=== PATIENT | male | born 1960 | race Caucasian/White ===

== ENCOUNTER 2025-03-17 09:34 | Outpatient (CLI) | payer MEDICARE, SELFPAY ==
--- OUTSIDE RECORDS SUMMARY | 2025-03-17 09:54 | XMS_ITS | Referral Summary ---
Author Organization [place] [id number] [facility] Address [address] [place] [address] Care Team Providers Care Betting Clerk Name Role Phone Raul Montiel MD Primary Care Provider [phone] Ian Love MD Unavailable [phone] Allergies No known active allergies Medications albuterol HFA (PROVENTIL HFA,VENTOLIN HFA,PROAIR HFA) 90 mcg/actuation inhaler Inhale 2 puffs every 4 (four) hours as needed for shortness of breath 3 Active ALPRAZolam (XANAX) 1 mg tablet Take 1 tablet (1 mg total) by mouth 4 (four) times a day as needed for anxiety 3 Active amitriptyline (ELAVIL) 150 mg tablet Take 1 tablet (150 mg total) by mouth nightly at bedtime. 3 Active atorvastatin (LIPITOR) 20 mg tablet Take 1 tablet (20 mg total) by mouth nightly 3 Active losartan (COZAAR) 100 mg tablet Take 1 tablet (100 mg total) by mouth every morning 3 Active montelukast (SINGULAIR) 10 mg tablet Take 1 tablet (10 mg total) by mouth every morning 3 Active zolpidem CR (AMBIEN CR) 12.5 mg CR tablet Take 1 tablet (12.5 mg total) by mouth nightly at bedtime. 3 Active venlafaxine XR (EFFEXOR-XR) 75 mg 24 hr capsule Take 1 capsule (75 mg total) by mouth 2 (two) times a day 3 Active tadalafiL (CIALIS) 20 mg tablet Take 1 tablet (20 mg total) by mouth every morning [address] (PROTONIX) 40 mg EC tablet Take 1 tablet (40 mg total) by mouth 2 (two) times a day 3 Active testosterone cypionate (DEPO-TESTOTERO NE) 200 mg/mL injection Inject 3 mL (600 mg total) into the muscle as instructed every 14 (fourteen) days 3 Active polyethylene glycol (MIRALAX) 17 gram packet Take 1 packet (17 g total) by mouth every morning Active busPIRone (BUSPAR) 15 mg tablet Take 1 tablet (15 mg total) by mouth nightly 4 Active risperiDONE (RisperDAL) 0.5 mg tablet Take 1 tablet (0.5 mg total) by mouth nightly Active prazosin (MINIPRESS) 5 mg capsule Take 2 capsules (10 mg total) by mouth nightly Active loratadine (CLARITIN) 10 mg tablet Take 1 tablet (10 mg total) by mouth as needed for allergies Active ipratropium-alb uteroL (DUO-NEB) 0.5-2.5 mg/3 mL nebulizer solution USE 1 AMPULE IN NEBULIZER 4 TIMES DAILY NEEDED Active hydroCHLOROthia zide (HYDRODIURIL) 25 mg tablet Take 1 tablet (25 mg total) by mouth nightly Active fluticasone propionate (FLONASE) 50 mcg/actuation nasal spray Administer 1 spray into affected nostril(s) as needed for allergies or rhinitis Active fexofenadine (ALMA DELIA) 180 mg tablet Take 1 tablet (180 mg total) by mouth as needed Active budesonide (PULMICORT) 180 mcg/actuation inhaler Inhale 2 puffs as needed Active ARIPiprazole (ABILIFY) 5 mg tablet Take 1 tablet (5 mg total) by mouth 2 (two) times a day 4 Active aspirin 81 mg enteric coated tablet Take 2 tablets (162 mg total) by mouth every morning Active ubidecarenone (COENZYME Q10 ORAL) Take by mouth every morning Active acetaminophen (TYLENOL) 500 mg tablet Take 2 tablets (1,000 mg total) by mouth every 6 (six) hours as needed for pain 30 tablet 4 Active acetaminophen 500 mg capsuleIndicati ons:Pain Take 2 capsules (1,000 mg total) by mouth every 6 (six) hours 60 tablet 4 Active senna-docusate (PERICOLACE) 8.6-50 mgIndications:c onstipation Take 2 tablets by mouth 2 (two) times a day 20 tablet 4 Active lidocaine (ASPERCREME) 4 % adhesive patch,medicated Place 2 patches on the skin daily 10 patch 4 Active oxyCODONE (ROXICODONE) 10 mg tabletIndicatio ns:Pain Take 1 tablet (10 mg total) by mouth every 4 (four) hours as needed for pain 10 tablet 4 Active Active Problems Problem Noted Date Diagnosed Date Acute post-operative pain 01/22/2024 Assessment & Plan (01/24/2024 8:49 AM CDT): Patient with history of chronic pain and home medication regimen Patient receiving Tylenol, oxycodone, ice to groin and Toradol x1 01/22 patient uses Tramadol and [place] at home, dose of Oxycodone 5mg not helping with pain. Oxycodone increased to 10mg Q4PRN, and toraldol given x2 as patient is to drive home this afternoon 01/23 pain controlled with PO meds; narcotic instruction/safety sheet provided at [facility] Anxiety 01/22/2024 Assessment & Plan (01/22/2024 12:18 PM CDT): Continue home xanax PRN Depression 01/22/2024 Assessment & Plan (01/22/2024 12:18 PM CDT): Home regimen continued Abilify, amitriptyline, buspar, risparadone, GERD (gastroesophageal reflux disease) Assessment & Plan (01/22/2024 12:19 PM CDT): Continue home PPI Groin pain, chronic, left 01/21/2024 Assessment & Plan (01/22/2024 12:10 PM CDT): See inguinal hernia Chronic pain of inguinal region 01/09/2024 Inguinal hernia without obstruction or gangrene 01/09/2024 Assessment & Plan (01/24/2024 8:51 AM CDT): -01/21 Post op day 1 from left inguinal hernia repair with mesh, pain not controlled, voiding and not passing flatus. Tolerating diet. Pain management- applied ice QID, Tylenol, oxycodone, Toradol x1, encouraged ambulation and out of bed Plan for discharge home tomorrow morning, patient drove self to hospital and will need to be narcotic free for at minimum 4 hours prior to leaving hospital -01/22 dispo held per patient; PO oxycodone administered, patient driving self home. Continued to recommend scrotal support and ice for post-op ecchymosis and edema -01/23 plan for dispo today; POD3, pain controlled, tolerating diet, ambulatory. Dermabond over L groin incision, closed and intact. Plan for phone call follow up with Mj IBRAHIM - patient agreeable and understands After Care Discharge Instructions - Acute Care Emergency Surgery - narcotic and pain control teaching performed by this author, patient reiterated understanding - wound care teaching performed by this author, patient reiterated understanding --- plan discussed with operating surgeon on day of discharge --- patient agreeable to presenting to ED for fever, surgical site or drain changes, malaise or PO intolerance - patient to discharge home with family support ---Home Health Nursing: not ordered/not indicated ---Home Health Therapy (PT/OT): not ordered/not indicated Left inguinal pain 09/10/2023 Social History Tobacco Use Types Packs/Day Years Used Date Smoking Tobacco: Never Smokeless Tobacco: Never Tobacco Cessation:Counseling Given: No Hunger Vital Sign Answer Date Recorded Within the past 12 months, y ou worried that your food would run out before you got the money to buy more. Never true 03/17/20 24 Within the past 12 months, t he food you bought just didn't last and you didn't have money to get more. Never true 03/17/2024 Personal Safety Answer Date Recorded Have you ever been in or are you currently in a harmful physical or emotional relationship or is someone making you feel afraid or unsafe? 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 Gender Identity Not on file Sexual Orientation Not on file Last Filed Vital Signs Vital Sign Reading Time Taken Comments Blood Pressure 125/63 04/04/2024 8:46 AM CDT Pulse 88 04/04/2024 8:46 AM CDT Temperature 36.6 C (97.8 F) 04/04/2024 8:46 AM CDT Respiratory Rate 18 04/04/2024 8:46 AM CDT Oxygen Saturation 96% 04/04/2024 8:46 AM CDT Inhaled Oxygen Concentration - - Weight 86.8 kg (191 lb 6.4 oz) 04/04/2024 8:46 A M CDT Height 185.4 cm (6' 1) 04/04/2024 8:46 AM CDT Body Mass Index 25.25 04/04/2024 8:46 AM CDT Plan of Treatment Not on file Medical Devices Implanted Type Area Head Doffer Device Identifier Shelf Expiration Date Model / Serial / Lot [employer] Inc/C R Bard 6x3in Large Pore Knit Monofilament Smooth [place] [id number] - [id number] Implanted:Qty: 1 on 01/21/2024 by Zay Chavarria MD at [facility] Mesh Abdomen [employer]/C R Bard [id number] 04/11/2028 [id number] / / [id number] Insurance MEDICARE [facility] Address: [address] [address] [place] [address] MEDICARE Advance Directives For more information, please contact: [phone] * Full Code (Latest Code Status on File) Date Activated Date Inactivated Comments 01/21/2024 3:15 PM 01/24/2024 2:26 PM Care Teams Betting Clerk Relationship Specialty Start Date End Date Raul Montiel MD [address] [facility] [place] [address] PCP - General Family Medicine 04/06/23 Ian Love MD [address] [facility]3] DEPT OF SURGERY, [address]RD [place] [address] Referring Physician Surgical Oncology 07/13/23
--- OUTSIDE RECORDS SUMMARY | 2025-03-17 09:54 | XMS_ITS | Clinical Summary ---
Author Organization [place] [address] [facility] Address [address] [place] [address] Care Team Providers Care Campus Police Officer Name Role Phone Raul Montiel MD Primary Care Provider [phone] Ian Love MD Unavailable [phone] Allergies No known active allergies Medications albuterol [...] Toradol x1 01/22 patient uses Tramadol and [place] at home, dose of Oxycodone 5mg not helping with pain. Oxycodone increased to 10mg Q4PRN, and toraldol given x2 as patient is to drive home this afternoon 01/23 pain controlled with PO meds; narcotic instruction/safety sheet provided at [facility] Anxiety 01/22/2024 Assessment & Plan [...] not ordered/not indicated Left inguinal pain 09/10/2023 Surgical History Surgery Date Site/Laterality Comments INGUINAL HERNIA REPAIR 03/06/2019 Bilateral DISTAL BICEPS TENDON REPAIR 03/15/2016 - 04/13/2016 Right LAPAROSCOPIC CARLA FUNDOPLICATION Medical History Medical History Date Comments HTN (hypertension) Bilateral inguinal hernia (BIH) Anxiety Depression GERD (gastroesophageal reflux disease) Family History Medical History Relation Name Comments Anesthesia problems Neg Hx Social History Tobacco Use Types Packs/Day Years [...] on file 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 Gender Identity Not on file Sexual Orientation Not on file Obstetrics History Last Filed Vital Signs Vital Sign Reading [...] 04/04/2024 8:46 AM CDT Plan of Treatment Health Maintenance Due Date Last Done Comments Colon Cancer Screening-Colonoscopy 1960 Depression Screening 1960 Hepatitis C Screening 1960 Prostate Cancer Screening-PSA 1960 DTaP/Tdap/Td Vaccine (1 - Tdap) 1971 Hepatitis B Screening 1978 Regular Well Visit/Exam 18-64 1978 Pneumococcal vaccine <65 (1 of 2 - PCV) 1979 Zoster Vaccine (2 of 2) 06/07/2023 04/12/2023 Covid-19 Vaccine (4 - 2023-2 5 season) 2024 11/03/2021, 01/11/2021, 12/21/2020 Influenza Vaccine (Season Ended) 2025 08/02/2020, 07/18/2019, 08/29/2018, Additional history exists Medical Devices Implanted Type Area Cheese Wrapper Device Identifier Shelf Expiration Date Model / Serial / Lot [employer]/C R Bard 6x3in Large Pore Knit Monofilament Smooth [place] [id number] - [id number] Implanted:Qty: 1 on 01/21/2024 by Zay Chavarria MD at [facility] Mesh Abdomen [employer]/C R Bard [id number] 04/11/2028 [id number] / / [id number] Insurance MEDICARE MEDICARE Advance Directives For more information, please contact: [phone] * Full Code (Latest Code Status on File) Date Activated Date Inactivated Comments 01/21/2024 3:15 PM 01/24/2024 2:26 PM Care Teams Campus Police Officer Relationship Specialty Start Date End Date Raul Montiel MD [address] [place] [address] PCP - General Family Medicine 04/06/23 Ian Love MD [address] [facility] DEPT OF SURGERY, [address]RD [place] [address] Referring Physician Surgical Oncology 07/13/23
--- NOTE | 2025-03-17 10:06 | ECG_ITS ---
Test Date: 2025-03-17 10:13:50 Measurements Intervals [place] Rate: 78 P: 34 ID: [id number] QRS: -56 QRSD: 181 T: 8 QT: 416 QTc: 474 Interpretive Statements SINUS RHYTHM RIGHT BUNDLE BRANCH BLOCK LEFT ANTERIOR FASCICULAR BLOCK ABNORMAL ECG No previous ECG available for comparison Electronically Signed On 03-17-2025 10:48:27 CDT by Sascha Mei D.O.
[2025-03-17 10:11] LABS: Add Urine Microscopic? NO; Appearance Urine Clear (Clear); Bilirubin Urine Negative (Negative); Blood Urine Negative (Negative); Color Urine Light Yellow (Yellow); Glucose Urine UA Negative (Negative); Ketones Urine Negative (Negative); Leukocyte Esterase Ur Negative LEU/UL (Negative); Nitrate Urine Negative (Negative); Protein Urine Negative (Negative); pH Urine 7.5 (5.0-8.0)
[2025-03-17 10:30] LABS: Anion Gap 7 mmol/L (4-12); Blood Urea Nitrogen 12 mg/dL (9-20); Calcium 9.5 mg/dL (8.4-10.2); Carbon Dioxide 30 mmol/L (22-30); Chloride 102 mmol/L (98-107); Estimated Glomerular Filt Rate 53; Glucose 103 mg/dL (65-110); Osmolality Calculated 287 mOsm/kg (285-295); Potassium 4.4 mmol/L (3.4-5.0); Sodium 139 mmol/L (137-145)
== END 2025-03-17 09:35 | disposition home or self-care (01) ==
PROVIDERS: Urology; PCP Family Medicine; Visit Provider Anesthesiology
DX: Z01.818 Encounter for other preprocedural examination (principal); S39.9 Unspecified injury of abdomen, lower back, pelvis and external genitals; Z79.899 Other long term (current) drug therapy; I25.2 Old myocardial infarction; I10 Essential (primary) hypertension; E78.5 Hyperlipidemia, unspecified; I45.2 Bifascicular block; R94.31 Abnormal electrocardiogram [ECG] [EKG]
CPT/HCPCS: 36415; 80048; 81003; 93005

== ENCOUNTER 2025-03-18 00:26 | Day surgery (SDC) | payer MEDICARE, SELFPAY ==
[2025-03-17 08:53] VITALS: BMI 24.7
--- NOTE | 2025-03-17 09:11 | PC.NURSE ---
Report to the Outpatient Waiting Room, entrance under the green pavilion located off [facility], at time __0600am on date _03/18/25 . Planned Procedure Time: __0730am) .? Time changes happen often and if your time is changed the preop area will call you the afternoon before. - You and your visitor will be asked to self-screen and do not enter if you have any COVID symptoms. Please call surgeon if you need to reschedule. - A mask is optional within the hospital at this time. Patients may have clear liquids (water, carbonated beverages, clear teas, apple juice) until 3 hours prior to surgery with a maximum of 20 ounces. - No food from midnight until time of surgery and no smoking, or chewing tobacco (or any form of nicotine). No chewing gum, candy or mints.( 0430am) Take only the following medications with a SIP of water on the morning of surgery: __Venlafexine, Xanax as needed, Tramadol as needed, Pt to use Inhalers as directed DO NOT STOP ANY OF YOUR OTHER PRESCRIPTION MEDICATIONS PRIOR TO SURGERY EXCEPT THE FOLLOWING Hold all vitamins and supplements for 3 days per anesthesiologist. Medications to discontinue per physician Aspirin for 7 days Date to take last dose Pt currently off it for 10 days Please no make-up, nail turkmen, hairspray, perfume, deodorant, or body powder the day of surgery.? No jewelry (including any body piercings) or valuables the day of surgery, leave them at home.? Please take a shower or bath the night before, or the morning of, surgery with an antibacterial soap.? Wear comfortable, loose fitting clothing.? HIBICLEANSE DIRECTED TONIGHT and AM. - Jewelry must be removed prior to entering the operating room.? Rings and piercings that are not removed may be cut off. - The hospital will not accept responsibility for valuables.? - Please leave all valuables, including medications, at home the day of surgery. If you are going home after surgery, a licensed motorcoach driver must drive you home.? - NO public transportation without another adult if you receive anesthesia. - We recommend that an adult stay with you for 24 hours following discharge. - We also recommend that you do not drive, make important decision, drink alcoholic beverages, or take any drugs that were not prescribed by your health care provider for at least 24 hours after your discharge time. Follow any additional instructions given to you from your surgeon. Telephone instructions given to __Patient and asked if any additional questions and then verbalized understanding. Patient advised to call surgeon office or pre surgery nurse liaison [phone] if any additional questions.
[2025-03-18] VITALS (8 sets, daily range): BP systolic 122–159; BP diastolic 66–86; PULSE 74–82; RESP 10–14; TEMP 36.2–36.6; O2SAT 92–98; BMI 25.5
--- OUTSIDE RECORDS SUMMARY | 2025-03-18 00:30 | XMS_ITS | Clinical Summary ---
Author Organization [place] [id number] [facility] Address [address] [place] [address] Care Team Providers Care Telegraph Repeater Technician Name Role Phone Raul Montiel MD Primary Care Provider [phone] Ian Love MD Unavailable [phone] Allergies No known active allergies Medications albuterol [...] Toradol x1 01/22 patient uses Tramadol and [place] at home, dose of Oxycodone 5mg not helping with pain. 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 Gender Identity Not on file Sexual Orientation [...] history exists Medical Devices Implanted Type Area 4Th Grade Math Teacher Device Identifier Shelf Expiration Date Model / Serial / Lot [employer]/C R Bard 6x3in Large Pore Knit Monofilament Smooth [place] [id number] - [id number] Implanted:Qty: 1 on 01/21/2024 by Zay Chavarria MD at [facility] Mesh Abdomen [employer]/C R Bard [id number] 04/11/2028 [id number] / / [id number] Insurance MEDICARE MEDICARE Advance Directives For more information, please contact: [phone] * Full Code (Latest Code Status on File) Date Activated Date Inactivated Comments 01/21/2024 3:15 PM 01/24/2024 2:26 PM Care Teams Telegraph Repeater Technician Relationship Specialty Start Date End Date Raul Montiel MD [address] [place] [address] PCP - General Family Medicine 04/06/23 Ian Love MD [address] [facility] DEPT OF SURGERY, [address] [place] [address] Referring Physician Surgical Oncology 07/13/23
--- OUTSIDE RECORDS SUMMARY | 2025-03-18 00:30 | XMS_ITS | Referral Summary ---
Author Organization [place] [id number] [facility] Address [address] [place] [address] Care Team Providers Care Garment Fitter Name Role Phone Raul Montiel MD Primary Care Provider [phone] Ian Love MD Unavailable [phone] Allergies No known active allergies Medications albuterol [...] Toradol x1 01/22 patient uses Tramadol and [place] at home, dose of Oxycodone 5mg not helping with pain. 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 Gender Identity Not on file Sexual Orientation [...] on file Medical Devices Implanted Type Area Refinery Operator Helper Cracking Unit Device Identifier Shelf Expiration Date Model / Serial / Lot [employer]/C R Bard 6x3in Large Pore Knit Monofilament Smooth [place] [id number] - [id number] Implanted:Qty: 1 on 01/21/2024 by Zay Chavarria MD at [facility] Mesh Abdomen [employer]/C R Bard [id number] 04/11/2028 [id number] / / [id number] Insurance MEDICARE [facility] Address: [address] [address] [place] [address] MEDICARE Advance Directives For more information, please contact: [phone] * Full Code (Latest Code Status on File) Date Activated Date Inactivated Comments 01/21/2024 3:15 PM 01/24/2024 2:26 PM Care Teams Garment Fitter Relationship Specialty Start Date End Date Raul Montiel MD [address] [facility] [address] PCP - General Family Medicine 04/06/23 Ian Love MD [address] [facility] DEPT OF SURGERY, 3RD [place] [address] Referring Physician Surgical Oncology 07/13/23
[2025-03-18] MEDS: LACTATED RINGERS 1,000 ML 30 ML IV CONT ×2 (06:15→09:48)
[2025-03-18] MEDS: ACETAMINOPHEN 500 MG TABLET 1000 MG PO (06:15)
--- NOTE | 2025-03-18 06:51 | P.PNAN_ITS ---
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 Patient Data Age: 64 Gender: M Height: 1.83 m Weight: 83 kg Allergies Allergy/AdvReac Type Severity Reaction Status Date / Time No Known Allergies Allergy Verified 03/17/25 08:47 Home Medications ?Medication ?Instructions ?Recorded ?Confirmed ?Type albuterol sulfate 90 mcg/actuation 2 puff inhalation Q4H PRN 03/16/25 03/16/25 History aerosol inhaler shortness of breath or wheezing alprazolam 1 mg tablet 1 mg PO TID 03/16/25 03/16/25 History amitriptyline 150 mg tablet 150 mg PO HS 03/16/25 03/16/25 History atorvastatin 20 mg tablet 20 mg PO QPM 03/16/25 03/16/25 History betamethasone dipropionate 0.05 % 1 applic topical DAILY PRN rash 03/16/25 03/16/25 History topical cream budesonide 0.5 mg/2 mL suspension 0.5 mg inhalation Q12H 03/16/25 03/16/25 History for nebulization buspirone 15 mg tablet 15 mg PO HS 03/16/25 03/16/25 History cariprazine 3 mg capsule (Vraylar) 3 mg PO DAILY 03/16/25 03/16/25 History cyclobenzaprine 10 mg tablet 10 mg PO Q8H PRN muscle spasm 03/16/25 03/16/25 History famotidine 20 mg tablet 20 mg PO HS 03/16/25 03/16/25 History fexofenadine-pseudoephedrine ER 1 tablet PO DAILY 03/16/25 03/16/25 History 180 mg-240 mg tablet,ext.release 24 hr (Shobha-D 24 Hour) fluticasone propionate 50 1 spray intranasal DAILY PRN 03/16/25 03/16/25 History mcg/actuation nasal allergy symptoms spray,suspension (24 Hour Allergy Relief) hydrochlorothiazide 25 mg tablet 25 mg PO DAILY 03/16/25 03/16/25 History ipratropium 0.5 mg-albuterol 3 mg 3 ml inhalation Q6H PRN shortness 03/16/25 03/16/25 History (2.5 mg base)/3 mL nebulization of breath soln losartan 100 mg tablet 50 mg PO DAILY 03/16/25 03/17/25 History pantoprazole 40 mg tablet,delayed 40 mg PO DAILY 03/16/25 03/16/25 History release polyethylene glycol 3350 17 17 g PO DAILY 03/16/25 03/16/25 History gram/dose oral powder (ClearLax) prazosin 1 mg capsule 3 mg PO DAILY 03/16/25 03/16/25 History tadalafil 20 mg tablet 20 mg PO Q24H PRN sexual activity 03/16/25 03/16/25 History testosterone cypionate 200 mg/mL 200 mg IM .bi-weekly 03/16/25 03/16/25 History intramuscular oil tramadol 50 mg tablet 50 mg PO Q6H PRN pain 03/16/25 03/16/25 History venlafaxine 75 mg capsule,extended 225 mg PO DAILY 03/16/25 03/16/25 History release 24 hr zolpidem 12.5 mg tablet,extended 12.5 mg PO HS 03/16/25 03/16/25 History release,multiphase Patient hx anesthesia problems: none Family hx anesthesia problems: none Results Review: All pre-operative results and documents have been reviewed as part of the pre- operative evaluation. [facility] Past Medical History Medical History (Updated 03/18/25 @ 06:52 by Javier Dubose MD) PTSD (post-traumatic stress disorder) Hyperlipidemia HTN (hypertension) Surgical History Surgical History (Updated 03/18/25 @ 06:52 by Javier Dubose MD) History of Royal fundoplication Social History Social History Smoking status: Never smoker Alcohol intake: former Alcohol use details: None since 2009 Substance use: current Substance use type: marijuana Other substance usage details: [place] w medical card to help sleep Living arrangements: alone Spiritual care concerns: No Anes - Eval Final PreProcedure Day of Procedure 03/18/25 06:51 Patient weight: normal Heart: regular rate and rhythm Lungs: clear to auscultation Airway: Mallampati scale class II Neurological: alert and oriented Last oral intake: >/= 8 hours ASA classification: III Emergent: no Anesthetic plan: proceed Anesthesia type and monitoring: general ETT and standard monitoring Results Review: All pre-operative results and documents have been reviewed as part of the pre- operative evaluation. Informed Consent: The patient's anesthetic plan and its attendant risks and benefits were discussed with the patient/family/POA. Questions were solicited and answers provided to the satisfaction of the patient/family/POA.
--- NOTE | 2025-03-18 07:26 | PM.IMHP ---
H&P: HPI History of Present Illness Date/Time: 03/18/25 07:26 Chief Complaint: left testicular pain PMF Past Medical History Medical History (Updated 03/18/25 @ 07:27 by Sandeep Singh MD) Left testicular pain PTSD (post-traumatic stress disorder) Hyperlipidemia HTN (hypertension) Surgical History Surgical History (Updated 03/18/25 @ 06:52 by Javier Dubose MD) History of Royal fundoplication Social History Social History Smoking status: Never smoker Alcohol intake: former Alcohol use details: None since 2009 Substance use: current Substance use type: marijuana Other substance usage details: Gummies w medical card to help sleep Living arrangements: alone Spiritual care concerns: No Meds Home Medications and Allergies Home Medications ?Medication ?Instructions ?Recorded ?Confirmed ?Type albuterol sulfate 90 mcg/actuation 2 puff inhalation Q4H PRN 03/16/25 03/16/25 History aerosol inhaler shortness of breath or wheezing alprazolam 1 mg tablet 1 mg PO TID 03/16/25 03/16/25 History amitriptyline 150 mg tablet 150 mg PO HS 03/16/25 03/16/25 History atorvastatin 20 mg tablet 20 mg PO QPM 03/16/25 03/16/25 History betamethasone dipropionate 0.05 % 1 applic topical DAILY PRN rash 03/16/25 03/16/25 History topical cream budesonide 0.5 mg/2 mL suspension 0.5 mg inhalation Q12H 03/16/25 03/16/25 History for nebulization buspirone 15 mg tablet 15 mg PO HS 03/16/25 03/16/25 History cariprazine 3 mg capsule (Vraylar) 3 mg PO DAILY 03/16/25 03/16/25 History cyclobenzaprine 10 mg tablet 10 mg PO Q8H PRN muscle spasm 03/16/25 03/16/25 History famotidine 20 mg tablet 20 mg PO HS 03/16/25 03/16/25 History fexofenadine-pseudoephedrine ER 1 tablet PO DAILY 03/16/25 03/16/25 History 180 mg-240 mg tablet,ext.release 24 hr (Shobha-D 24 Hour) fluticasone propionate 50 1 spray intranasal DAILY PRN 03/16/25 03/16/25 History mcg/actuation nasal allergy symptoms spray,suspension (24 Hour Allergy Relief) hydrochlorothiazide 25 mg tablet 25 mg PO DAILY 03/16/25 03/16/25 History ipratropium 0.5 mg-albuterol 3 mg 3 ml inhalation Q6H PRN shortness 03/16/25 03/16/25 History (2.5 mg base)/3 mL nebulization of breath soln losartan 100 mg tablet 50 mg PO DAILY 03/16/25 03/17/25 History pantoprazole 40 mg tablet,delayed 40 mg PO DAILY 03/16/25 03/16/25 History release polyethylene glycol 3350 17 17 g PO DAILY 03/16/25 03/16/25 History gram/dose oral powder (ClearLax) prazosin 1 mg capsule 3 mg PO DAILY 03/16/25 03/16/25 History tadalafil 20 mg tablet 20 mg PO Q24H PRN sexual activity 03/16/25 03/16/25 History testosterone cypionate 200 mg/mL 200 mg IM .bi-weekly 03/16/25 03/16/25 History intramuscular oil tramadol 50 mg tablet 50 mg PO Q6H PRN pain 03/16/25 03/16/25 History venlafaxine 75 mg capsule,extended 225 mg PO DAILY 03/16/25 03/16/25 History release 24 hr zolpidem 12.5 mg tablet,extended 12.5 mg PO HS 03/16/25 03/16/25 History release,multiphase Allergies Allergy/AdvReac Type Severity Reaction Status Date / Time No Known Allergies Allergy Verified 03/17/25 08:47 Exam Narrative: no acute distress, abdomen soft, left testis in the inguinal canal, right testis in scrotum Assessment and Plan Assessment and plan (1) Left testicular pain: Code(s): N50.812 - Left testicular pain Status: Acute Assessment and Plan: Plan left subinguinal orchiectomy - risks, benefits and alternatives reviewed
--- NOTE | 2025-03-18 07:28 | WPDHPUPDATE1 ---
History and Physical Update Update Date/Time: 03/18/25 07:28 History and Physical has been reviewed, including an updated exam of the patient. There are NO changes in the patient's condition. Risks, benefits, and alternatives have been discussed and questions answered. Patient agrees to proceed with procedure.
[2025-03-18] MEDS: ceFAZolin 2 GM/D5W 50 ML 2 GM/50 ML BAG IVPB (07:36)
[2025-03-18] MEDS: BUPivacaine HCL 0.5% PF 30 ML VIAL INFILTRATE (07:36)
--- NOTE | 2025-03-18 09:01 | S_PTH ---
PATIENT: Jerry Lamar LOC: [facility] U#:[id number] AGE/SX: 64/M ROOM: RE03/18/[address]: Sandeep Singh MD : 1960 BED: DIS: 03/18/2025 SPEC #: [id number] RECD: 03/18/25 09:52 STATUS: VANESSA REQ #: [id number] JESSICA: 03/18/25 09:[address]: Sandeep Singh DEPT: [facility] Surgical RECD BY: Tahira Richardson ENTERED: 03/18/25 09:53 SP TYPE: Surgical OTHR DR: Raul Montiel M.D. Tissues: A - Testis Procedures: Hematoxylin and Eosin Stain Gross and Microscopic Level 4
[2025-03-18] MEDS: fentaNYL CITRATE INJ (*CRX) 100 MCG/2 ML VIAL 25 MCG IV PUSH ×4 (09:43→09:52)
--- NOTE | 2025-03-18 09:45 | P.OP_ITS ---
Procedure Note - Detailed Date of Procedure 03/18/25 Pre-op Diagnosis late effect of injury of testicle Post-op Diagnosis Same Procedure Performed Left subinguinal orchiectomy Surgeon Sandeep Singh MD Anesthesia General Findings Left testicle present in the inguinal canal. The testicle was atrophic. The spermatic cord was adherent to the surrounding tissues and external oblique fascia. Description of Procedure Informed consent was obtained. Patient taken the operating room. He was given preoperative IV antibiotics. Marcaine was then injected through the previous left inguinal hernia incision. The left testicle was palpable in the inguinal canal. We then opened the medial 3cm of his previous incision. We dissected down to the Marika's fascia that was then noted to be adherent to the testicle. We then carefully identified the testicle that was found to be atrophic and adherent to surrounding tissues. We identified the spermatic cord which was very adherent to the surrounding tissue. We were able to place a [place] drain around the cord. We then the testicle away from the tissue and the groin as well as from the gubernacular attachments. Once the testicle was freed we dissected the cord up to the external ring. There was extreme induration, thickening and adherence of the cord to the surrounding structures. Dissection was performed with use of electrocautery as well as suture ligation. We then placed clamps over the cord at the level of the external ring. The cord was then cut, the cord was noted to be extremely thickened. The left testicle was sent to pathology. We then oversewed the spermatic cord with multiple 0 silk suture ligatures. Clamps were released and there was good hemostasis. Due to adherence the cord did not retract much and was present at the external ring. We then irrigated copiously and there was good hemostasis. We closed Marika's with 2-0 Vicryl suture. Deep dermal layer with 3-0 Vicryl suture. Skin was closed with a subcuticular 4-0 Monocryl closure followed by surgical glue. A compressive dressing was placed. Patient taken today recovery room stable condition Pathology Yes Complications No immediate complications Condition Stable Disposition PACU
[2025-03-18] MEDS: oxyCODONE HCL (*CRX) 5 MG TAB IR PO (10:20)
== END 2025-03-18 11:05 | disposition home or self-care (01) ==
PROVIDERS: PCP Family Medicine; Visit Provider Urology
PROC: (CPT 54520; principal; 2025-03-18 07:30)
DX: N50.0 Atrophy of testis (principal); N46.01 Organic azoospermia; E78.5 Hyperlipidemia, unspecified; I10 Essential (primary) hypertension; F43.10 Post-traumatic stress disorder, unspecified; F12.90 Cannabis use, unspecified, uncomplicated; Z79.51 Long term (current) use of inhaled steroids; Z79.891 Long term (current) use of opiate analgesic; Z98.890 Other specified postprocedural states
CPT/HCPCS: 54520; 88305; A9270; J0690; J1100; J2003; J2250; J2405; J2704; J3010; J7120

== ENCOUNTER 2025-04-29 09:39 | Outpatient (CLI) | payer MEDICARE, SELFPAY ==
--- NOTE | ~2025-04-29 | CT_ITS ---
Non-contrast CT scan of the Abdomen and Pelvis Clinical indication: Postoperative pain Technique: 2.5 mm axial scans were obtained through the abdomen and pelvis without intravenous or or al contrast. Dose reduction technique was used on this scan by utilizing automated exposure control a nd iterative reconstruction technique. The dose-length product (DLP) was 520.75 mGy-cm. Findings: Images through the lung bases reveal no abnormalities. There is no evidence of renal or ureteral calculi. The kidneys and the ureters are nondilated. The liver, spleen, pancreas, gallbladder, and adrenals appear normal. There is no aortic aneurysm. There is no evidence of bowel obstruction. Images through the pelvis were performed. There is no evidence of ascites or lymphadenopathy. Urinary bladder unremarkable. No pelvic mass seen. Probable postoperative change in the subcutaneous soft ti ssues at the left groin/inguinal region. Impression: No acute abnormality. Probable postoperative change in the subcutaneous soft tissues of the left groi n/inguinal region. Reviewed, dictated and finalized at [facility]. Impression: No acute abnormality. Probable postoperative change in the subcutaneous soft ti ssues of the left groin/inguinal region.
--- OUTSIDE RECORDS SUMMARY | 2025-04-29 09:46 | XMS_ITS | Encounter Summary ---
Author Organization [facility] Address [address] [place] [id number] Care Team Providers Care Performance Improvement Director Name Role Phone Raul Montiel MD Primary Care Provider [phone] Encounter Details Date Type Department Care Team (Late st Contact Info) Description 03/22/2019 Abstract SFL CONVERSION [address] [place] [address] , Generic Conversion, Social History Tobacco Use Types Packs/Day Years Used Date Smoking Tobacco: Never Smokeless Tobacco: Never Alcohol Use Standard Drinks/Week Comments No 0 (1 standard drink = 0.6 oz pur e alcohol) AUDIT-C Answer Date Recorded Frequency of Alcohol Consumption Never 02/26/2019 Average Number of Drinks Not on file 019 Frequency of Binge Drinking Not on file 02/12 Sex and Gender Information Value Date Recorded Sex Assigned at Male 02/26/2019 10:57 AM CDT Legal Sex Male 8:52 PM CDT Gender Identity Male 02/26/2019 10:57 AM CDT Sexual Orientation Not on file documented as of this encounter Plan of Treatment Not on file documented as of this encounter Visit Diagnoses Not on filedocumented in this encounter Additional Health Concerns Infection Onset Date Last Indicated Resolved Time COVID-19 Rule Out 06/22/2021 06/22/2021 06/22/2021 10:56 AM CDT COVID-19 Rule Out 06/22/2021 06/22/2021 06/22/2021 7:52 PM CDT COVID-19 Rule Out 05/09/2022 05/09/2022 05/10/2022 7:22 PM CDT COVID-19 Rule Out 02/09/2024 02/09/2024 02/09/2024 6:39 PM CDT documented as of this encounter Care Teams Performance Improvement Director Relationship Specialty Start Date End Date Raul Montiel MD [address] [place] [phone] PCP - General FAMILY PRACTICE 02/27/19 documented as of this encounter
--- OUTSIDE RECORDS SUMMARY | 2025-04-29 09:46 | XMS_ITS | Referral Summary ---
Author Organization [place] [id number] [facility] Address [address] [place] [address] Care Team Providers Care Soil Chemist Name Role Phone Raul Montiel MD Primary Care Provider [phone] Ian Love MD Unavailable [phone] Allergies No known active allergies Medications albuterol [...] Toradol x1 01/22 patient uses Tramadol and [place] at home, dose of Oxycodone 5mg not helping with pain. 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 Gender Identity Not on file Sexual Orientation [...] on file Medical Devices Implanted Type Area Rubber Goods Supervisor Device Identifier Shelf Expiration Date Model / Serial / Lot [employer]/C R Bard 6x3in Large Pore Knit Monofilament Smooth [place] [id number] - [id number] Implanted:Qty: 1 on 01/21/2024 by Zay Chavarria MD at [facility] Mesh Abdomen [employer] [id number] 04/11/2028 [id number] / / [id number] Insurance MEDICARE [facility] Address: [address] [address] [place] [address] MEDICARE Advance Directives For more information, please contact: [phone] * Full Code (Latest Code Status on File) Date Activated Date Inactivated Comments 01/21/2024 3:15 PM 01/24/2024 2:26 PM Care Teams Soil Chemist Relationship Specialty Start Date End Date Raul Montiel MD [address] [facility] [place] [address] PCP - General Family Medicine 04/06/23 Ian Love MD [address] [facility] DEPT OF SURGERY, [address]RD [place] [address] Referring Physician Surgical Oncology 07/13/23
--- OUTSIDE RECORDS SUMMARY | 2025-04-29 09:46 | XMS_ITS | Clinical Summary ---
Author Organization [place] [id number] [facility] Address [address] [place] [address] Care Team Providers Care Equipment Tester Name Role Phone Raul Montiel MD Primary Care Provider Ian Love MD Unavailable [phone] Allergies No known active allergies Medications albuterol [...] for allergies or rhinitis Active fexofenadine (ALMA DLEIA) 180 mg tablet Take 1 tablet (180 [...] Toradol x1 01/22 patient uses Tramadol and [place] at home, dose of Oxycodone 5mg not helping with pain. 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 Gender Identity Not on file Sexual Orientation [...] season) 2024 11/03/2021, 01/11/2021, 12/21/2020 Influenza Vaccine (#1) 2025 0, 07/18/2019, 08/29/2018, Additional history exists Medical Devices Implanted Type Area Certified Orthotist Practice Manager Device Identifier Shelf Expiration Date Model / Serial / Lot [employer] Bard 6x3in Large Pore Knit Monofilament Smooth [place] [id number] - [id number] Implanted:Qty: 1 on 01/21/2024 by Zay Chavarria MD at [facility] Mesh Abdomen [employer] Bard [id number] 04/11/2028 [id number] / / [id number] Insurance MEDICARE MEDICARE Advance Directives For more information, please contact: [phone] * Full Code (Latest Code Status on File) Date Activated Date Inactivated Comments 01/21/2024 3:15 PM 01/24/2024 2:26 PM Care Teams Equipment Tester Relationship Specialty Start Date End Date Raul Montiel MD [address] [place] [address] PCP - General Family Medicine 04/06/23 Ian Love MD [address] [facility] DEPT OF SURGERY, [address] [place] [address] Referring Physician Surgical Oncology 07/13/23
--- OUTSIDE RECORDS SUMMARY | 2025-04-29 09:46 | XMS_ITS | Clinical Summary ---
Author Organization [facility] Address [address] [place] [address] Care Team Providers Care Auto Rebuilder Name Role Phone Raul Montiel MD Primary Care Provider [phone] Allergies No known active allergies Medications amitriptyline 100 MG tablet Take 1 tablet (100 mg total) by mouth nightly at bedtime. 5 Active atorvastatin 20 MG tablet Take 1 tablet (20 mg total) by mouth daily. 6 Active fluticasone-salm eterol (ADVAIR DISKUS) 500-50 MCG/DOSE inhaler Inhale 1 puff into the lungs 2 (two) times a day. 9 Active montelukast 10 MG tablet Take 1 tablet (10 mg total) by mouth nightly at bedtime. 5 Active testosterone cypionate 200 MG/ML injection Inject 3 mLs (600 mg total) into the muscle every 14 (fourteen) days. 6 Active ALPRAZolam 1 MG tablet Take 1 tablet (1 mg total) by mouth 4 (four) times daily as needed for Anxiety. 5 Active ALBUTEROL IN Inhale 2 puffs into the lungs every 6 (six) hours as needed for Shortness of breath. Active budesonide 180 mcg/act 180 MCG/ACT inhaler Inhale 2 puffs into the lungs 2 (two) times daily. Active cyclobenzaprine 10 MG tablet Take 1 tablet (10 mg total) by mouth 3 (three) times a day. Active loratadine 10 MG tablet Take 1 tablet (10 mg total) by mouth daily. Active sildenafil 20 MG tablet Take 1 tablet (20 mg total) by mouth as needed. Active hydrochlorothiaz michael 25 MG tablet Take 2 tablets (50 mg total) by mouth every morning. Active albuterol sulfate HFA 108 (90 Base) MCG/ACT inhaler Inhale 2 puffs into the lungs every 4 (four) hours as needed. Active fluticasone propionate 50 MCG/ACT nasal spray 1 spray by Nasal route daily. Active betamethasone dipropionate 0.05 % cream Apply 1 Application topically daily. Active venlafaxine XR 75 MG 24 hr capsule 3 capsules (225 mg total) nightly at bedtime. 9 Active famotidine 20 MG tablet Take 1 tablet (20 mg total) by mouth 2 (two) times a day. 9 Active zolpidem CR (AMBIEN CR) 12.5 MG tablet Take 1 tablet (12.5 mg total) by mouth nightly at bedtime. at bedtime. 2 Active tadalafil (CIALIS) 20 MG tablet TAKE 1 TABLET BY MOUTH A ONE TIME DOSE IN 24 HOURS NEEDED 2 Active losartan (COZAAR) 100 MG tablet 0.5 tablets (50 mg total) daily. 2 Active prazosin (MINIPRESS) 5 MG capsule Take 2 capsules (10 mg total) by mouth nightly at bedtime. Active pantoprazole EC (PROTONIX) 40 MG tablet Take 1 tablet (40 mg total) by mouth daily. Active fexofenadine (ALMA DELIA) 180 MG tablet Take 1 tablet (180 mg total) by mouth daily. Active ipratropium-albu terol (DUONEB) 0.5-2.5 (3) MG/3ML Solution Take by nebulization every 6 (six) hours as needed. Active polyethylene glycol (GLYCOLAX) packet Take 240 mLs (17 g total) by mouth daily. Dissolve powder in 240 mL water Active risperiDONE (RISPERDAL) 0.5 MG tablet Take 1 tablet (0.5 mg total) by mouth daily. Active HYDROcodone-acet aminophen (NORCO) 5-325 MG tabletIndication s:Acute Pain < 3 Day Supply Take 1 tablet by mouth every 6 (six) hours as needed for Pain (leg pain). Indications: Acute Pain < 3 Day Supply 12 tablet 4 Active calcium, elemental, 600 MG tablet Take 1 tablet (600 mg total) by mouth daily. 30 tablet 4 Active Active Problems Problem Noted Date Diagnosed Date S/P bilateral inguinal hernia repair 04/16/2019 Encounter for postoperative care 03/17/2019 Memory loss 02/26/2019 History of SD (myocardial infarction) 02/26/2019 Hypertension 02/26/2019 Asthma (HHS/HCC) 02/26/2019 Anxiety and depression 02/26/2019 Resolved Problems Problem Noted Date Diagnosed Date Resolved Date Bilateral inguinal hernia wi thout obstruction or gangrene 02/26/2019 03/13/2019 Aftercare following surgery to body system 03/28/2016 02/26/2019 Traumatic partial tear of ri ght biceps tendon, initial encounter 03/22/2016 02/26/2019 Encounter for preventive health examination 04/03/2013 02/26/2019 Encounters Date Type Department Care Team Description 03/19/2025 6:39 PM CDT - 03/19/2025 8:09 PM CDT Emergency [facility] [address] [place] [address] [address] [place] [id number] Brad German MD Medical Problem Discharge Disposition: Home or Self Care (Routine Discharge) 03/19/2025 Travel from Last 3 Months Family History Medical History Relation Comments Prostate Cancer Maternal Grandfather Breast Cancer Mother Lung Cancer Sister Relation Status Comments Father Maternal Grandfather Mother Sister Social History Tobacco Use Types Packs/Day Years Used Date Smoking Tobacco: Never Smokeless Tobacco: Never Alcohol Use Standard Drinks/Week Comments Not Currently 0 (1 standard drink = 0.6 oz [...] AM CDT Sexual Orientation Not on file Last Filed Vital Signs Vital Sign Reading Time Taken Comments Blood Pressure 135/81 03/19/2025 6:39 PM CDT Pulse 79 03/19/2025 6:39 PM CDT Temperature 36.3 C (97.3 F) 03/19/2025 6:39 PM CDT Respiratory Rate 18 03/19/2025 6:39 PM CDT Oxygen Saturation 95% 03/19/2025 6:39 PM CDT Inhaled Oxygen Concentration - - Weight 86.3 kg (190 lb 4 oz) 03/19/2025 6:39 PM CDT Height 182.9 cm (6') 03/19/2025 6:39 PM CDT Body Mass Index 25.8 03/19/2025 6:39 PM CDT Plan of Treatment Health Maintenance Due Date Last Done Comments Annual Physical 1963 Hepatitis C 1978 DTaP, Tdap and Td Vaccines ( 1 - Tdap) 1979 Pneumococcal Vaccine: 50+ Years (1 of 2 - PCV) 1979 Zoster Vaccines (1 of 2) 2010 RSV Immunization or 60+ Years (1 - Risk 60-74 years 1-dose series) 2020 COVID-19 Vaccine (4 - 2023-2 5 season) 2024 11/03/2021, 01/11/2021, 12/21/2020 Colorectal Cancer Screening Colonoscopy (10 Years) 05/12/2032 05/12/2022, 05/12/2022, 07/14/2016 Meningococcal B Vaccine Aged Out No l onger eligible based on patient's age to complete this topic Meningococcal Vaccine Aged Out No ralph whit eligible based on patient's age to complete this topic RSV Immunizations Under 20 Months Aged Out No longer eligible b ased on patient's age to complete this topic Procedures Procedure Name Priority Date/Time Associated Diagnosis Comments COLONOSCOPY 05/12/2022 6:39 AM CDT from Last 3 Months or Most Recently Relevant to Health Maintenance Results * Colonoscopy (05/12/2022 6:39 AM CDT) Pernell Van MD GI PROCEDURE ORDERABLES Final Result from Last 3 Months or Most Recently Relevant to Health Maintenance Insurance MEDICARE Care Teams Auto Rebuilder Relationship Specialty Start Date End Date Raul Monteil MD [address] [facility] [place] [phone] PCP - General FAMILY PRACTICE 02/27/19
== END 2025-04-29 09:40 | disposition home or self-care (01) ==
PROVIDERS: PCP Family Medicine; Visit Provider Urology
DX: G89.18 Other acute postprocedural pain (principal)
CPT/HCPCS: 74176